=== PATIENT | female | born 1945 | race Caucasian/White ===

== ENCOUNTER → 2017-01-22 | Outpatient (CLI) | payer MEDICARE | END | disposition home or self-care (01) | LOC: CFH 12:22 | PROVIDERS: ATTEND Nurse Practitioner | DX: Z12.31 Encounter for screening mammogram for malignant neoplasm of breast (principal); Z13.820 Encounter for screening for osteoporosis; M85.80 Other specified disorders of bone density and structure, unspecified site; Z78.0 Asymptomatic menopausal state | CPT/HCPCS: 77080; G0202 ==

== ENCOUNTER 2017-02-05 17:16 | Inpatient (IN) | payer MEDICARE ==
[~2017-02-05] VITALS: Ht 172.7 cm; Wt 80.6 kg
[2017-02-05] MEDS ORDERED: ASPIRIN 81 MG TABLET CHEW PO ONE (17:30)
[2017-02-05] MEDS ORDERED: SODIUM CHLORIDE FLUSH 10ML SYR IVF ONE (17:30)
[2017-02-05] MEDS ORDERED: ASPIRIN 81 MG TABLET CHEW ONE (17:36)
[2017-02-05 18:06] LABS: BLOOD UREA NITROGEN 15 mg/dL (7-18)
[2017-02-05 18:15] LABS: IS PT STATUS REG ER OR PRE ER? YES
[2017-02-05] MEDS ORDERED: NITROGLYCERIN OINT 2%, 1GM TP ONE ×2 (18:39→19:00)
[2017-02-05] MEDS ORDERED: METF500T27 PO (19:00)
[2017-02-05] MEDS ORDERED: OMEP40CA6 PO (19:00)
[2017-02-05] MEDS ORDERED: AMLO2.5T PO (19:00)
[2017-02-05] MEDS ORDERED: LOSA100T6 PO (19:00)
[2017-02-05] MEDS ORDERED: ONDANSETRON 2MG/ML, 2ML IVPush PRN (19:30)
[2017-02-05] MEDS ORDERED: OXYcodone IR 5MG TABLET PO PRN (19:30)
[2017-02-05] MEDS ORDERED: hydrALAzine 20 MG/ML, 1ML IVPush PRN (19:30)
[2017-02-05] MEDS ORDERED: ACETAMINOPHEN 325 MG TABLET PO PRN (19:30)
[2017-02-05] MEDS ORDERED: BISACODYL 10 MG SUPP PR PRN (19:30)
[2017-02-05] MEDS ORDERED: DOCUSATE 100 MG CAPSULE PO PRN (19:30)
[2017-02-05] MEDS ORDERED: morphine SULFATE 10 MG/ML, 1ML IVPush PRN (19:30)
[2017-02-05] MEDS ORDERED: POLYETHYLENE GLYCOL 17 GM PACKET PO PRN (19:30)
[2017-02-05] MEDS ORDERED: ENALAPRILAT 1.25 MG/ML, 2ML IVPush PRN (19:30)
[2017-02-05 21:41] VITALS: BP 203/84
[2017-02-05 22:25] VITALS: BP 173/84
[2017-02-05 22:25] LABS: IS PT STATUS REG ER OR PRE ER? NO
[2017-02-05] MEDS: AMLODIPINE 2.5 MG TABLET PO SCH (22:26)
[2017-02-05] MEDS: HEPARIN 5,000 UNITS/ML, 1ML SQ SCH (22:27)
[2017-02-05] MEDS: SODIUM CHLORIDE 0.9% 1,000 ML IV SCH (22:29)
[2017-02-05 22:43] LABS: PATH.CAST-FLAG NOT PRESENT; SPERM-FLAG NOT PRESENT; SRC-FLAG NOT PRESENT; XTAL-FLAG NOT PRESENT; YLC-FLAG NOT PRESENT
[2017-02-06 01:23] VITALS: BP 161/77
[2017-02-06] MEDS: HEPARIN 5,000 UNITS/ML, 1ML SQ SCH ×2 (05:58→16:33)
[2017-02-06] MEDS ORDERED: ASPIRIN 325 MG TABLET EC PO SCH (06:00)
[2017-02-06 06:07] LABS: ASPARTATE AMINO TRANSFERASE 17 U/L (15-37); BLOOD UREA NITROGEN 14 mg/dL (7-18)
[2017-02-06 06:08] LABS: IS PT STATUS REG ER OR PRE ER? NO
[2017-02-06 07:37] VITALS: BP 128/81
[2017-02-06] MEDS: INSULIN ASPART 100 UNITS/ML, PEN SQ-INSULIN SCH ×2 (08:00→11:48)
[2017-02-06] MEDS ORDERED: REGADENOSON 0.4 MG/5 ML SYRINGE ONE (08:35)
[2017-02-06] MEDS ORDERED: LOSARTAN 50MG TABLET PO SCH (09:00)
[2017-02-06] MEDS ORDERED: OMEPRAZOLE 20 MG CAPSULE.DR PO SCH (09:00)
[2017-02-06] MEDS ORDERED: POTASSIUM CHLORIDE 20 MEQ TAB.ER.PRT PO ONE (09:00)
[2017-02-06] MEDS ORDERED: FLUTICASONE/VILANTEROL 200-25MCG/INH INH SCH (09:00)
[2017-02-06] MEDS: SODIUM CHLORIDE 0.9% 1,000 ML IV SCH (11:33)
[2017-02-06] MEDS: AMLODIPINE 2.5 MG TABLET PO SCH (11:35)
[2017-02-06 15:18] VITALS: BP 141/73
[2017-02-06] MEDS ORDERED: PNEUMOCOCCAL 23 VACCINE IM-VACC ONE (15:30)
[2017-02-06] MEDS ORDERED: ATOR10TA9 PO (15:57)
[2017-02-06] MEDS ORDERED: ALPR-475 PO (16:46)
== END 2017-02-06 17:43 | disposition home or self-care (01) | DRG 880 ==
LOC: ED 17:55 → EDIP 20:05 → 5SO 21:00
PROVIDERS: ADMIT Internal Medicine; ATTEND Internal Medicine
DX: F41.9 Anxiety disorder, unspecified (principal); I10 Essential (primary) hypertension; K21.9 Gastro-esophageal reflux disease without esophagitis; J45.909 Unspecified asthma, uncomplicated; E11.9 Type 2 diabetes mellitus without complications; Z88.8 Allergy status to other drugs, medicaments and biological substances; Z90.49 Acquired absence of other specified parts of digestive tract; Z79.899 Other long term (current) drug therapy
CPT/HCPCS: 36415; 71010; 78452; 80048; 80053; 80061; 81001; 82040; 82962; 83036; 83735; 84439; 84443; 84484; 85025; 87086; 90732; 93005; 93017; 99285; J1644; J1815; J2785; A9502; C9898; J7030

== ENCOUNTER 2019-08-25 15:15 | Outpatient (CLI) | payer MEDICARE ==
[~2019-08-25 15:15] MED LIST: ALPR0.5T7 PO; AMLO2.5T5 PO; ATOR10TA9 PO; LOSA100T14 PO; METF500T27 PO; OMEP40CA42 PO
== END 2019-08-25 23:59 | disposition home or self-care (01) ==
LOC: CFH 15:15
PROVIDERS: ATTEND Nurse Practitioner
DX: S09.90XA Unspecified injury of head, initial encounter (principal); R51 Headache; X58.XXXA Exposure to other specified factors, initial encounter; Y93.89 Activity, other specified; Y92.89 Other specified places as the place of occurrence of the external cause; Y99.8 Other external cause status
CPT/HCPCS: 70450

== ENCOUNTER → 2019-12-14 | Outpatient (CLI) | payer MEDICARE | END | disposition home or self-care (01) | LOC: CFH 14:06 | PROVIDERS: ATTEND Nurse Practitioner | DX: R92.1 Mammographic calcification found on diagnostic imaging of breast (principal); N64.4 Mastodynia | CPT/HCPCS: 77066; G0279 ==

== ENCOUNTER 2020-09-19 15:08 | Emergency (ER) | payer MEDICARE ==
[~2020-09-19] VITALS: Ht 172.7 cm; Wt 80.8 kg
[2020-09-19 15:56] LABS: BASOPHILS % (AUTO) 1 % (0-1); EOSINOPHILS % (AUTO) 0 % (1-7); LYMPHOCYTES % (AUTO) 20 % (22-44); MEAN CORPUSCULAR HEMOGLOBIN 29.7 pg (27.0-34.8); MEAN CORPUSCULAR HGB CONC 33.9 g/dL (32.4-35.8); MEAN PLATELET VOLUME 10.2 fL (7.4-10.4); MONOCYTES % (AUTO) 7 % (2-9); NEUTROPHILS % (AUTO) 73 % (42-75); PLATELET COUNT 246 x10^3/uL (130-400); RED BLOOD COUNT 4.73 x10^6/uL (3.82-5.3); RED CELL DISTRIBUTION WIDTH 13.6 % (9.6-15.2)
[2020-09-19 15:58] LABS: MD NO
[2020-09-19 16:01] LABS: ALANINE AMINOTRANSFERASE 25 U/L (12-78); ANION GAP 10 mmol/L (5-15); CALCIUM 8.7 mg/dL (8.5-10.1); CHLORIDE 98 mmol/L (98-107); CREATININE 1.11 mg/dL (0.55-1.02)
[2020-09-19 16:06] LABS: ALKALINE PHOSPHATASE 78 U/L (45-117); BILIRUBIN,TOTAL 1.3 mg/dL (0.2-1.0); TOTAL PROTEIN 8.3 g/dL (6.4-8.2); TROPONIN I < 0.015 ng/mL (0.000-0.045)
--- NOTE | 2020-09-19 16:51 | NUR ---
galley stripper: pt from lobby to room 4
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
[2020-09-19 17:36] LABS: MICROSCOPIC AUTO
[2020-09-19] MEDS ORDERED: SODIUM CHLORIDE 0.9% 1,000ML IVBOLUS ONE (18:00)
[2020-09-19] MEDS ORDERED: ONDANSETRON 2MG/ML, 2ML IVPush ONE (18:00)
[2020-09-19] MEDS ORDERED: ONDANSETRON 2MG/ML, 2ML ONE (18:05)
--- NOTE | 2020-09-19 18:18 | NUR ---
PT OFF THE FLOOR TO CT
--- NOTE | 2020-09-19 18:52 | NUR ---
LOCOMOTIVE OBSERVER BROUGHT PT BACK AND SAID IV IS NOT GOOD FOR CT. CT REQUESTED NEW IV AND TO CALL WHEN READY.
--- NOTE | 2020-09-19 19:11 | NUR ---
bedside report received from rd rn, pt care transferred at this time. pt resting on gurney, nad, appears comfortable, denies additional needs at this time, previous iv pulled due to not flushing, waiting for iv access and cta, wctm.
--- NOTE | 2020-09-19 19:25 | NUR ---
TASK RN: 19 GA PIV PLACED TO LEFT FOREARM
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
--- NOTE | 2020-09-19 20:21 | NUR ---
PT AMBULATED TO AND FROM RESTROOM WITH A SMOOTH AND STEADY GAIT, PT NAD, DENIES ADDITIONAL NEEDS OR QUESTIONS AT THIS TIME, APPEARS COMFORTABLE. BED IN LOWEST, RAILS ENGAGED, CALL LIGHT ON LAP, WCTM.
[2020-09-19] MEDS ORDERED: OMNIPAQUE 350 MG/ML, 100ML BOTTLE ONE (20:23)
[2020-09-19 21:23] VITALS: BP 146/57
--- NOTE | 2020-09-19 21:27 | NUR ---
PT SWABBED FOR COVID, SWAB WALKED TO LAB, PT TOLERATED WELL. WCTM. TO BE DC'D
--- NOTE | 2020-09-19 21:38 | NUR ---
Patient given discharge instructions and they have confirmed that they understand the instructions. Patient ambulatory with steady gait. NAD, DENIES ADDITIONAL QUESTIONS OR NEEDS AT THIS TIME. NO PERSONAL BELONGINGS LEFT IN ROOM AFTER DC.
== END 2020-09-19 21:39 | disposition home or self-care (01) ==
LOC: ED 15:38
DX: R51.9 Headache, unspecified (principal); Z20.822 Contact with and (suspected) exposure to COVID-19; R11.0 Nausea; M54.2 Cervicalgia; R53.1 Weakness; R11.2 Nausea with vomiting, unspecified; R94.31 Abnormal electrocardiogram [ECG] [EKG]; I10 Essential (primary) hypertension; E11.9 Type 2 diabetes mellitus without complications; J44.9 Chronic obstructive pulmonary disease, unspecified; Z90.49 Acquired absence of other specified parts of digestive tract; Z87.891 Personal history of nicotine dependence; Z88.2 Allergy status to sulfonamides
CPT/HCPCS: 36415; 70450; 70496; 70498; 71045; 80053; 81001; 82728; 83615; 83880; 84484; 85025; 87635; 93005; 96361; 96374; 99285; J2405; J7030; Q9967